=== PATIENT | male | born 1955 | race Hispanic/Latino ===

== ENCOUNTER 2016-11-03 14:06 | Observation (INO) | payer OTHER, MEDICARE ==
[~2016-11-03] VITALS: Ht 175.3 cm; Wt 113.4 kg
--- NOTE | 2016-11-03 14:19 | NUR ---
C/O LEFT SIDED CHEST PAIN RADIATING TO BACK AND HEAD X 2 DAYS, WITH SLIGHT SOB, DIZZINESS. EKG DONE ON ARRIVAL.
--- NOTE | 2016-11-03 14:49 | ED CARDIAC/CP/PALPITATIONS ---
History of Present Illness General Chief Complaint: Chest Pain Stated Complaint: CP Source: patient, family Exam Limitations: language barrier Vital Signs & Intake/Output Vital Signs & Intake/Output Vital Signs Date Time Temp Pulse Resp B/P Pulse O2 O2 Flow FiO2 Ox Delivery Rate 11/03 1545 97.8 76 18 123/80 96 Room Air Room Air 11/03 1418 97.5 80 18 127/87 99 Room Air Allergies Coded Allergies: No Known Drug Allergies (11/03/16) Reconcile Medications Aspirin (Aspirin*) 81 MG TAB.CHEW 1 TAB PO DAILY CAD (Reported) Atorvastatin Calcium 80 MG TABLET 1 TAB PO DAILY CHOLESTEROL (Reported) Glimepiride 4 MG TABLET 2 TAB PO QAM DM (Reported) Lisinopril 5 MG TABLET 1 TAB PO DAILY BP (Reported) Metformin HCl 1,000 MG TABLET 1 TAB PO DAILY DM (Reported) Pantoprazole Sodium 20 MG TABLET.DR 1 TAB PO DAILY PUD Triage Note: C/O LEFT SIDED CHEST PAIN RADIATING TO BACK AND HEAD X 2 DAYS, WITH SLIGHT SOB, DIZZINESS. EKG DONE ON ARRIVAL. Triage Nurses Notes Reviewed? yes Onset: Abrupt Duration: day(s): (1), waxing and waning Timing: multiple episodes today Quality/Severity: moderate Location: LEFT CHEST Radiation: back Activities at Onset: none Aspirin Today: no aspirin today Associated Symptoms: DIZZINESS, BACK PAIN HPI: This is a 61 year old male with history of hypertension, dyslipidemia, KS status post previous stent who presents to the ER with chief complaint of left sided chest pain radiating straight to the back on/off since yesterday. Pain is sharp and lasts 3 minutes. Associated dizziness with pain. Patient states symptoms are not similar to previous KS. He moved from [place] 2 years ago and currently follows up with Dr. Valladares cardiology. Pain is better with lying down. Denies any fever chills or productive cough. Denies any trauma. No prolonged immobilization. According to the daughter he has a history of clots in his leg. He is not on any blood thinners and does not take a daily aspirin. She states he had a vein closure procedure. It is unclear whether or not he has a history of previous DVT. Past History Travel History Traveled to [place] past 21 day No Medical History Any Pertinent Medical History? see below for history Cardiovascular: hypertension, myocardial infarction Endocrine: diabetes Surgical History Surgical History: cARDIAC STENT, VEIN SCLEROTHERAPY Psychosocial History What is your primary language Malay Tobacco Use: Quit >30 days ago ETOH Use: denies use Family History Hx Contributory? No Review of Systems Review of Systems Constitutional: Denies: chills, fever. EENTM: Reports: no symptoms. Respiratory: Denies: cough, short of breath, sputum production. Cardiovascular: Reports: chest pain. GI: Reports: no symptoms. Genitourinary: Reports: no symptoms. Musculoskeletal: Reports: back pain. Skin: Reports: no symptoms. Neurological/Psychological: Reports: see HPI (DIZZINESS). Hematologic/Endocrine: Denies: bruising, bleeding. Immunologic/Allergic: Denies: splenectomy. All Other Systems: Reviewed and Negative Physical Exam Physical Exam General Appearance: well developed/nourished, alert, awake, mild distress Head: atraumatic, normal appearance Eyes: Bilateral: normal appearance, PERRL, EOMI. Ears, Nose, Throat: normal pharynx, normal ENT inspection, hearing grossly normal Neck: normal inspection, supple, full range of motion Respiratory: normal breath sounds, chest non-tender, no respiratory distress Cardiovascular: regular rate/rhythm Peripheral Pulses: 2+ radial (R), 2+ radial (L) Gastrointestinal: normal bowel sounds, soft, non-tender Extremities: normal inspection, normal capillary refill, normal range of motion Neurologic/Psych: no motor/sensory deficits, awake, alert, oriented x 3 Skin: intact, normal color, warm/dry Core Measures ACS in differential dx? Yes ASA ordered for poss ACS? Yes-ordered Severe Sepsis Present: No Septic Shock Present: No Progress Differential Diagnosis: AMI, aortic dissection, CHF/pulm edema, musculoskeletal pain, pericarditis, pneumonia, pneumothorax, PUD/GERD Plan of Care: Orders Procedure Date/time Status Heart Healthy Diet 11/[address] in observation 11/03 1834 Active Vital Signs 11/03 1834 Active Code Status 11/03 1834 Active Telemetry/Wine Steward/Stewardess 11/03 1458 Active TROPONIN LEVEL 11/03 1457 Complete PARTIAL THROMBOPLASTIN TIME 11/03 1457 Complete PROTHROMBIN TIME 11/03 1457 Complete COMPREHENSIVE METABOLIC PANEL 11/03 1457 Complete CBC WITHOUT DIFFERENTIAL 11/03 1457 Complete EKG 11/03 1408 Active Laboratory Tests 11/03/16 1505: Anion Gap 10, Estimated GFR > 60, BUN/Creatinine Ratio 27.5 H, Glucose 141 H, Calcium 9.2, Total Bilirubin 0.8, AST 24, ALT 31, Alkaline Phosphatase 52, Troponin I 0.03, Total Protein 7.4, Albumin 4.2, Globulin 3.2, Albumin/Globulin Ratio 1.3, PT 10.6, INR 1.01, APTT 27, CBC w Diff NO MAN DIFF REQ, RBC 4.72, MCV 95.6 H, MCH 32.6 H, RDW 13.0, MPV 9.1, Gran % 60.6, Lymphocytes % 30.9, Monocytes % 6.2, Eosinophils % 1.7, Basophils % 0.6, Absolute Granulocytes 5.5, Absolute Lymphocytes 2.8, Absolute Monocytes 0.6, Absolute Eosinophils 0.2, Absolute Basophils 0.1, PUBS MCHC 34.1 11/03/2016 6:07:29 PM Patient is chest pain-free after aspirin. CT scan is negative for PE although suboptimal IV contrast bolus was given. Discussed the case with Dr. Whatley who agrees that the patient should remain overnight for observation. Patient is noncompliant with his medications for high cholesterol not on a daily aspirin. It would be advisable to keep him for 23 hours to rule out ACS and obtain an echocardiogram the possible. Discussed with patient and daughter at bedside who is translating. (VILMA KOROMA,FAISAL) Diagnostic Imaging: Viewed by Me: CT Scan. Discussed w/RAD: CT Scan. Radiology Impression: PATIENT: TAWANNA CHAUDHARY PRESENT AGE: 61 PATIENT ACCOUNT NO: [id number] : 56 LOCATION: [facility] ORDERING PHYSICIAN: FAISAL GREEN MD SERVICE DATE: 11/03/16 EXAM TYPE: CAT - CTA CHEST-PULMONARY EMBOLISM EXAMINATION: CT ANGIOGRAM OF THE CHEST WITH AND WITHOUT CONTRAST (CT PULMONARY ANGIOGRAM FOR PE) CLINICAL INFORMATION: Chest pain radiating to the back. History of deep venous thrombosis. COMPARISON: None. TECHNIQUE: Prior to contrast administration, noncontrast localization images were obtained. Subsequently, multidetector volumetric imaging was performed from the thoracic inlet to below the diaphragms following the administration of 95 mL Optiray 350 intravenous contrast. No contrast reaction reported. Sagittal, coronal, and MIP oblique sagittal reformatted images were obtained on the CT workstation, uploaded to PACS, and reviewed. Total exam dose-length product 547 mGy-cm FINDINGS: QUALITY OF STUDY/CONTRAST BOLUS: Suboptimal contrast opacification of the pulmonary arterial vasculature. PULMONARY ARTERIES: No large central pulmonary emboli. No visible intraluminal filling defects to the level of the segmental pulmonary arteries. Limited evaluation of the subsegmental pulmonary arteries secondary to pulmonary hypoinflation, respiratory motion abnormality as well as suboptimal contrast opacification of the pulmonary arterial vasculature. THORACIC AORTA: Normal caliber of the thoracic aorta, without aneurysmal dilatation or dissection. LUNG: Evaluation of the lung parenchyma demonstrates pulmonary hypoinflation and dependent bibasilar atelectasis. No focal airspace consolidation is identified to suggest infection. No suspicious pulmonary nodules or masses. Central airways are patent, without endobronchial obstructing lesions. PLEURA: No pleural effusion or pneumothorax. MEDIASTINUM: Borderline enlarged heart, without significant pericardial effusion. Normal three-vessel branching of the aortic arch. No hilar or mediastinal adenopathy. No evidence of septal bowing or right heart strain. CHEST WALL/AXILLA: No axillary or internal mammary lymphadenopathy. OSSEOUS STRUCTURES: No acute or suspicious osseous abnormality. UPPER ABDOMEN: No acute findings within the upper abdomen. Diffuse low-attenuation of the liver parenchyma, indicative of fatty infiltration of the liver. No reflux of contrast into the hepatic veins to suggest elevated right heart pressures. IMPRESSION: Suboptimal contrast opacification of the pulmonary arterial vasculature. No large central pulmonary emboli. No visible intraluminal filling defects to the level of the segmental pulmonary arteries. Limited evaluation of the subsegmental pulmonary arteries given the aforementioned exam limitations. If clinical concern for pulmonary embolism persists, consider repeat CTA of the chest following adequate hydration. Alternatively, consider correlation with a VQ scan or bilateral lower extremity Doppler ultrasounds. VTE: Indeterminate. This critical result was discussed with Dr. Green at 5:09 PM on 11/03/2016 and it was ascertained that the content and urgency of the report was understood at the time of direct communication. DICTATED BY: TAYLOR QUISPE MD DATE/TIME DICTATED:11/03/161652 CARPENTER FOREMAN:NIKKY DATE/TIME TRANSCRIBED:1652 CONFIDENTIAL, DO NOT COPY WITHOUT APPROPRIATE AUTHORIZATION. < Electronically signed in Other Vendor System> SIGNED BY: TAYLOR QUISPE MD 11/03/16 1713 Initial ED EKG: NSR Departure Departure Time of Disposition: 1759 Disposition: STILL A PATIENT Condition: Stable Clinical Impression Primary Impression: Chest pain Referrals: LETA KOROMA,COLEEN Cueva (PCP/Family) Departure Forms: Customer Survey General Discharge Information Prescriptions: Current Visit Scripts Pantoprazole Sodium 1 TAB PO DAILY #30 TAB Observation Note Spoke With: EMRE KOROMA PhD,JAMAL Fields Physician Advisor Notified: SIAV KOROMA,JAMAL Hernadnez Place Patient In: Non-ED OBS Care Area Rationale for Observation: My rational for observation is as follows [TELE MONITOR, SERIAL EKG/TROPONIN, ASPIRIN, NITRATES, ECHOCARDIOGRAM]. Critical Care Note Critical Care Note Critical Care Time: non-applicable
--- NOTE | 2016-11-03 15:09 | NUR ---
PT CHANGED INTO GOWN AND PLACED ON PARACHUTE/COMBATANT DIVER OFFICER WHICH SHOWS SR. DR ESPARZA AT BEDSIDE FOR EVALUATION. IV INITIATED, LABS DRAWN AND SENT. EKG PREVIOUSLY COMPLETED IN TRIAGE
[2016-11-03 15:15] LABS: ABSOLUTE BASOPHIL COUNT 0.1 /CUMM (0.0-0.2); ABSOLUTE EOSINOPHIL COUNT 0.2 /CUMM (0.0-0.7); ABSOLUTE GRANULOCYTE CT 5.5 /CUMM (1.4-6.5); ABSOLUTE LYMPH COUNT 2.8 /CUMM (1.2-3.4); ABSOLUTE MONOCYTE COUNT 0.6 /CUMM (0.10-0.60); BASOPHIL % 0.6 % (0.0-2.0); EOSINOPHIL % 1.7 % (0-5); GRANULOCYTE % 60.6 % (42.2-75.2); HEMATOCRIT 45.1 % (42-52); MEAN CORPUSCULAR HGB 32.6 PG (27.0-31.0); MEAN CORPUSCULAR HGB CONC 34.1 G/DL (33.0-37.0); MEAN CORPUSCULAR VOLUME 95.6 FL (80.0-94.0); MEAN PLATELET VOLUME 9.1 FL (7.4-10.4); PLATELET COUNT 215 /CUMM (130-400); RED BLOOD CELL CT 4.72 /CUMM (4.70-6.10); WHITE BLOOD CELL COUNT 9.1 /CUMM (4.8-10.8)
[2016-11-03 15:21] LABS: PT 10.6 SEC (9.4-12.5); PTT 27 SEC (25-37)
--- NOTE | 2016-11-03 15:28 | NUR ---
PT CARE ASSUMED BY THIS RN AT THIS TIME. OFFERS NO COMPLAINTS. VERBALIZES UNDERSTANDING OF PLAN FOR CAT SCAN.
[2016-11-03] MEDS ORDERED: LISINOPRIL5 M1 PO (15:55)
[2016-11-03] MEDS ORDERED: METFORMIN HCL1000 M1 PO (15:55)
[2016-11-03] MEDS ORDERED: GLIMEPIRIDE4 M1 PO (15:55)
[2016-11-03] MEDS ORDERED: ATORVASTATIN CA80 M1 PO (15:57)
--- NOTE | 2016-11-03 16:22 | NUR ---
PT CONTINUES AT CAT SCAN VIA STRETCHER.
--- NOTE | 2016-11-03 16:37 | NUR ---
PT RETURN FROM CAT SCAN VIA STRETCHER.
--- NOTE | 2016-11-03 17:13 | CT SCAN REPORT ---
EXAMINATION: CT ANGIOGRAM OF THE CHEST WITH AND WITHOUT CONTRAST (CT PULMONARY ANGIOGRAM FOR PE) CLINICAL INFORMATION: Chest pain radiating to the back. History of deep venous thrombosis. COMPARISON: None. TECHNIQUE: Prior to contrast administration, noncontrast localization images were obtained. Subsequently, multidetector volumetric imaging was performed from the thoracic inlet to below the diaphragms following the administration of 95 mL Optiray 350 intravenous contrast. No contrast reaction reported. Sagittal, coronal, and MIP oblique sagittal reformatted images were obtained on the CT workstation, uploaded to PACS, and reviewed. Total exam dose-length product 547 mGy-cm FINDINGS: QUALITY OF STUDY/CONTRAST BOLUS: Suboptimal contrast opacification of the pulmonary arterial vasculature. PULMONARY ARTERIES: No large central pulmonary emboli. No visible intraluminal filling defects to the level of the segmental pulmonary arteries. Limited evaluation of the subsegmental pulmonary arteries secondary to pulmonary hypoinflation, respiratory motion abnormality as well as suboptimal contrast opacification of the pulmonary arterial vasculature. THORACIC AORTA: Normal caliber of the thoracic aorta, without aneurysmal dilatation or dissection. LUNG: Evaluation of the lung parenchyma demonstrates pulmonary hypoinflation and dependent bibasilar atelectasis. No focal airspace consolidation is identified to suggest infection. No suspicious pulmonary nodules or masses. Central airways are patent, without endobronchial obstructing lesions. PLEURA: No pleural effusion or pneumothorax. MEDIASTINUM: Borderline enlarged heart, without significant pericardial effusion. Normal three-vessel branching of the aortic arch. No hilar or mediastinal adenopathy. No evidence of septal bowing or right heart strain. CHEST WALL/AXILLA: No axillary or internal mammary lymphadenopathy. OSSEOUS STRUCTURES: No acute or suspicious osseous abnormality. UPPER ABDOMEN: No acute findings within the upper abdomen. Diffuse low-attenuation of the liver parenchyma, indicative of fatty infiltration of the liver. No reflux of contrast into the hepatic veins to suggest elevated right heart pressures. IMPRESSION: Suboptimal contrast opacification of the pulmonary arterial vasculature. No large central pulmonary emboli. No visible intraluminal filling defects to the level of the segmental pulmonary arteries. Limited evaluation of the subsegmental pulmonary arteries given the aforementioned exam limitations. If clinical concern for pulmonary embolism persists, consider repeat CTA of the chest following adequate hydration. Alternatively, consider correlation with a VQ scan or bilateral lower extremity Doppler ultrasounds. VTE: Indeterminate. This critical result was discussed with Dr. Green at 5:09 PM on 11/03/2016 and it was ascertained that the content and urgency of the report was understood at the time of direct communication.
--- NOTE | 2016-11-03 18:11 | NUR ---
DINNER TRAY ORDERED.
--- NOTE | 2016-11-03 18:39 | NUR ---
DINNER TRAY PROVIDED TO PT. CASE MANAGEMENT TO BEDSIDE TO DISCUSS HOSPITAL STAY.
--- NOTE | 2016-11-03 19:23 | NUR ---
PT TO ROOM 189 BED 2
--- NOTE | 2016-11-03 20:05 | History & Physical ---
DEVIN WHYTE 11/03/16 2004: General Information and HPI MD Statement: I have seen and personally examined TAWANNA CHAUDHARY and documented this H&P. The patient is a 61 year old M who presented with a patient stated chief complaint of [Chest pain, SOB ]. Source of Information: patient, family Exam Limitations: no limitations History of Present Illness: is a 61 yo man with PMHx. of HTN, HLD, DM, DVT about 5- 6 years, HI 4 to 5 years ago he has a cardiac cath. but he didn't remember if they put a stent, who presents to the ER with c/o of left sided chest pain, and SOB started yesterday. Initially pain was mild, but when he woke up today he feels sharp sever pain 6/10, radiating to the back and head, improved with laying down and no exacerbating factors, associated with numbness of the tongue and SOB, he was breathing fast. He felt Dizzy during the pain but no LOC. He follows up with Dr. Valladares cardiology. Denies any fever, chills, cough, sore throat. No change bowel habits. He reports burning urination, with no blood, no frequency, no flank pain. He denies any trauma. Of note patient is in disability because of numbness of BL LE, it gets weak easily on ambulation. He had Hx chronic diabetic ulcer, which healed with dark skin pigmentation on B/ L LE. Allergies/Medications Allergies: Coded Allergies: No Known Drug Allergies (11/03/16) Past History Travel History Traveled to [place] past 21 day No Medical History EENT: cataracts Cardiovascular: hypertension, myocardial infarction Endocrine: diabetes Blood Disorders: DVT Surgical History Surgical History: cARDIAC STENT, VEIN SCLEROTHERAPY Past Family/Social History Family History Relations & Conditions if any MOTHER FH: heart attack FH: hypertension FHx: diabetes mellitus FATHER FH: stroke Relation not specified for: *No pertinent family history Psychosocial History Primary Language: Luxembourgish Smoking Status: Never Smoked ETOH Use: denies use Illicit Drug Use: denies illicit drug use Employment History 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 EENTM: Reports: no symptoms. Cardiovascular: Reports: chest pain. Respiratory: Reports: short of breath. Genitourinary: Reports: see HPI. Musculoskeletal: Reports: back pain. Neurological/Psychological: Reports: see HPI. Hematologic/Endocrine: Reports: see HPI. Exam & Diagnostic Data Last 24 Hrs of Vital Signs/I&O Vital Signs Date Time Temp Pulse Resp B/P Pulse O2 O2 Flow FiO2 Ox Delivery Rate 11/03 1913 97.2 64 18 149/90 97 11/03 1545 97.8 76 18 123/80 96 Room Air Room Air 11/03 1418 97.5 80 18 127/87 99 Room Air Intake & Output 11/03 1600 11/03 0800 11/03 0000 Intake Total Output Total Balance Patient 250 lb Weight Physical Exam General Appearance Alert, Oriented X3, Cooperative, No Acute Distress Skin No Rashes, No Breakdown, No Significant Lesion, dark discoloration on B/L LE, at the site of healing of chronic ulcer HEENT Atraumatic, PERRLA, EOMI, Mucous Membr. moist/pink Neck Supple, No JVD, No thryomegaly, +2 Carotid Pulse wo Bruit Lymphatic Axillary nl, Cervical nl Cardiovascular Regular Rate, Normal S1, Normal S2, No Murmurs Lungs Clear to Auscultation, Normal Air Movement Abdomen Normal Bowel Sounds, Soft, No Tenderness Neurological Normal Speech, Strength at 5/5 X4 Ext, Normal Tone, Sensation Intact, Cranial Nerves 3-12 NL, Reflexes 2+ Extremities No Edema, Normal Pulses Vascular Normal Pulses, Pulses Symmetrical Last 24 Hrs of Labs/Shakeel: Laboratory Tests 11/03/16 1505: Anion Gap 10, Estimated GFR > 60, BUN/Creatinine Ratio 27.5 H, Glucose 141 H, Calcium 9.2, Total Bilirubin 0.8, AST 24, ALT 31, Alkaline Phosphatase 52, Troponin I 0.03, Total Protein 7.4, Albumin 4.2, Globulin 3.2, Albumin/Globulin Ratio 1.3, PT 10.6, INR 1.01, APTT 27, CBC w Diff NO MAN DIFF REQ, RBC 4.72, MCV 95.6 H, MCH 32.6 H, RDW 13.0, MPV 9.1, Gran % 60.6, Lymphocytes % 30.9, Monocytes % 6.2, Eosinophils % 1.7, Basophils % 0.6, Absolute Granulocytes 5.5, Absolute Lymphocytes 2.8, Absolute Monocytes 0.6, Absolute Eosinophils 0.2, Absolute Basophils 0.1, PUBS MCHC 34.1 Assessment/Plan Assessment: 61 yo man with PMHx significant for HTN, HLD, HI, ?DVT presented with chest pain and SOB. Labs: WNL, except elevated bun/creatinine ratio:27.5 1st troponin is negative CTA:Suboptimal contrast opacification of the pulmonary arterial vasculature. No large central pulmonary emboli. No visible intraluminal filling defects to the level of the segmental pulmonary arteries. Limited evaluation of the subsegmental pulmonary arteries given the aforementioned exam limitations. If clinical concern for pulmonary embolism persists, consider repeat CTA of the chest following adequate hydration. Alternatively, consider correlation with a VQ scan or bilateral lower extremity Doppler ultrasounds. Plan: -Will admitt to telemetry floor -Will start IV heparin -D-dimer -serial EKG and Troponin to r/o ACS -BL LE doppler to R/O dvt -Cardiology consult with -Echocardiogram to assess left wall motion, and to r/o right heart strain -Will continue home medications -ABG -Will hold oral hypoglycemic med -Will start insulin sliding scale -Acchucheck -pain management pathway -Diabetic diet Full code As Ranked By This Provider Problem List: 1. Chest pain Core Measures/Miscellaneous Acute Coronary Syndrome ACS Diagnosis: No Cerebrovascular Accident CVA/TIA Diagnosis: No Congestive Heart Failure CHF Diagnosis: No Venous Thromboembolism VTE Risk Factors: Acute medical illness, Age > 40 VTE Prophylaxis Ordered Inpt: Pharm- Heparin No Mech VTE prophylaxis d/t: No contraindications No VTE Pharm Prophylaxis d/t: No contraindications VTE Diagnosis: Yes VTE Type: Pulmonary Embolism VTE Confirmed by (Test): CT CHEST ANGIOGRAM Severe Sepsis Severe Sepsis Present: No Septic Shock Septic Shock Present: No Miscellaneous Documentation Attending Case Discussed With: EMRE KOROMA PhD,JAMAL Fields Primary Care Physician: COLEEN GILLETTE MD Patient sees these Specialists Banking And Finance Instructor Level of Patient Care: Telemetry NICKOLAS SOLIZ MD 11/04/16 1158: General Information and HPI Allergies/Medications Home Med list Aspirin (Aspirin*) 81 MG TAB.CHEW 1 TAB PO DAILY CAD (Reported) Atorvastatin Calcium 80 MG TABLET 1 TAB PO DAILY CHOLESTEROL (Reported) Glimepiride 4 MG TABLET 2 TAB PO QAM DM (Reported) Lisinopril 5 MG TABLET 1 TAB PO DAILY BP (Reported) Metformin HCl 1,000 MG TABLET 1 TAB PO DAILY DM (Reported) Pantoprazole Sodium 20 MG TABLET. 1 TAB PO DAILY PUD Attending MD Review Statement Attending Statement Attending MD Statement: examined this patient, discuss w/resident/PA/FOUNDER AND PRESIDENT, agreed w/resident/PA/FOUNDER AND PRESIDENT, discussed with family, reviewed EMR data (avail), discussed with nursing, reviewed images, amended to note Attending Assessment/Plan: Agree with housestaff note above. The patient presented with chest pain and shortness of breath, which have resolved. He is now pain-free. Review of systems: No fever. No chills. No rash. No tremor. All other systems were reviewed, and were noted to be negative. Gen: The patient is in no acute distress HEENT: Normal nose, ears, and oropharynx. Pupils equal bilaterally. Conjunctiva normal. Neck: Supple with no JVD, no masses, and no thyromegaly Lungs: Clear to auscultation with normal respiratory effort Heart: RRR, S1, S2, no murmurs. No peripheral edema, 2+ pulses in the lower extremities bilaterally Abdomen: Soft, nontender, no masses. No hepatomegaly. No splenomegaly Extremities: No clubbing or cyanosis. Normal muscle strength in the upper and lower extremities Skin: Normal skin turgor with no skin ulcers or lesions noted. Neuro: Cranial nerves intact. Sensation intact Psych: Alert and oriented 3 with appropriate affect EKG tracing is independently reviewed, and reveals normal sinus rhythm at 75 CTA chest: Suboptimal contrast opacification of the pulmonary arterial vasculature. No large central pulmonary emboli. No visible intraluminal filling defects to the level of the segmental pulmonary arteries. Limited evaluation of the subsegmental pulmonary arteries given the aforementioned exam limitations. If clinical concern for pulmonary embolism persists, consider repeat CTA of the chest following adequate hydration. Alternatively, consider correlation with a VQ scan or bilateral lower extremity Doppler ultrasounds. VTE: Indeterminate. Lower Extremity Doppler: There is no sonographic evidence of deep venous thrombosis involving the bilateral lower extremities. Assessment: 1. Hypertension 2. Diabetes mellitus 3. History of cardiac catheterization showing myocardial bridging 4. Chest pain, likely negative troponin [address] angiogram inconclusive for PE, however d-dimer is negative and lower extremity Dopplers negative for DVT. Plan: * Check third troponin now. * If the troponin is negative, then discharge home today. * Follow up with Dr. Valladares in one week.
--- NOTE | 2016-11-03 21:19 | NUR ---
PER LAB SST AND BLUE TOP HEMOLYZED.
--- NOTE | 2016-11-03 21:40 | NUR ---
PT TO US VIA STRETCHER.
--- NOTE | 2016-11-03 22:12 | ULTRASOUND REPORT ---
EXAMINATION: US TRIPLEX LOWER EXTREMITY, BILATERAL CLINICAL INFORMATION: Shortness of breath and chest pain COMPARISON: None TECHNIQUE: Color-flow triplex imaging with spectral analysis and compression Doppler were performed on the bilateral lower extremities. FINDINGS: Respiratory variation, normal compression and augmented flow are noted throughout the bilateral lower extremities. The visualized common femoral vein, superficial femoral vein, profunda femoral vein, popliteal vein and midcalf peroneal and posterior tibial venous segments show no evidence of deep venous thrombosis. There is no Ball's cyst. IMPRESSION: There is no sonographic evidence of deep venous thrombosis involving the bilateral lower extremities.
[2016-11-03 22:46] VITALS: BP 124/80
[2016-11-04 04:01] LABS: PTT 66 SEC (25-37)
--- NOTE | 2016-11-04 06:54 | PN- Housestaff ---
Subjective Follow-up For: -Chest pain -?Acute on chronic PE Complaints: Headache Subjective: Patient seen and examined at bedside. He is complained from sever headache a wake him up from sleep. He still feels left chest pain, initially improved with nitroglycerine patch but now acting up again. He denies nausea, vomiting, SOB, and there is no change in bowel habits. Vitals remains stable overnight. Review of Systems Constitutional: Denies: no symptoms. EENTM: Denies: no symptoms. Cardiovascular: Denies: no symptoms. Respiratory: Reports: no symptoms. Gastrointestinal: Reports: no symptoms. Genitourinary: Reports: no symptoms. Objective Last 24 Hrs of Vital Signs/I&O Vital Signs Date Time Temp Pulse Resp B/P Pulse O2 O2 Flow FiO2 Ox Delivery Rate 11/04 0921 6 110/60 11/04 0753 98.4 60 20 110/60 96 11/03 2246 98.9 60 20 124/80 97 Room Air 11/03 2211 101.5 120 20 156/92 96 11/03 2200 66 145/88 11/03 1913 97.2 64 18 149/90 97 11/03 1545 97.8 76 18 123/80 96 Room Air Room Air 11/03 1418 97.5 80 18 127/87 99 Room Air Intake & Output 11/04 1600 11/04 0800 11/04 0000 Intake Total 328 Output Total Balance 328 Intake, IV 208 Intake, Oral 120 Patient 250 lb Weight Physical Exam General Appearance: Alert, Oriented X3, Cooperative, No Acute Distress Skin: No Rashes, No Breakdown, No Significant Lesion HEENT: PERRLA, EOMI, Mucous Membr. moist/pink Cardiovascular: Normal S1, Normal S2, No Murmurs Lungs: Clear to Auscultation, Normal Air Movement Abdomen: Soft, No Tenderness Extremities: No Edema, Normal Pulses Vascular: Normal Pulses, Pulses Symmetrical Current Medications: Current Medications Sig/Sarah Start time Last Medication Dose Route Stop Time Status Admin Acetaminophen 650 MG Q6P PRN 11/04 0700 AC 11/04 PO 0736 Aspirin 0 .STK-MED ONE 11/03 1513 DC PO Aspirin 325 MG ONCE ONE 11/03 1500 DC 11/03 PO 11/03 1501 1512 Atorvastatin Calcium 80 MG DAILY@1700 11/04 1700 AC PO Heparin Sodium/ 25,000 UNIT Q24H 11/03 2014 AC 11/03 Dextrose IV 2106 Dextrose/Water 500 ML Ibuprofen 600 MG Q6P PRN 11/04 0700 AC PO Insulin Human Regular 0 TIDAC/HS 11/03 2099 AC 11/04 SC 0922 Lisinopril 5 MG DAILY 11/04 1000 AC 11/04 PO 0921 Nitroglycerin 0.2 MG 2200 11/03 2200 AC 11/04 TOP 0009 Oxycodone/ 2 TAB Q6P PRN 11/04 07 AC Acetaminophen PO Last 24 Hrs of Lab/Shakeel Results Last 24 Hrs of Labs/Mics: Laboratory Tests 11/04/16 0800: pH 7.42, pCO2 35, pO2 81, HCO3 22, ABG O2 Sat (Measured) 96.0, P-50 (Temp Corrected) YES, Carboxyhemoglobin 0.8 L, O2 Concentration % RA, Temperature 98.9, O2 Delivery Method RA, Phlebotomy Draw Site RIGHT RADIAL 11/04/16 0315: APTT 66 H 11/03/16 2130: Troponin I < 0.01, D-Dimer < 200 11/03/16 1505: Anion Gap 10, Estimated GFR > 60, BUN/Creatinine Ratio 27.5 H, Glucose 141 H, Calcium 9.2, Total Bilirubin 0.8, AST 24, ALT 31, Alkaline Phosphatase 52, Troponin I 0.03, Total Protein 7.4, Albumin 4.2, Globulin 3.2, Albumin/Globulin Ratio 1.3, PT 10.6, INR 1.01, APTT 27, CBC w Diff NO MAN DIFF REQ, RBC 4.72, MCV 95.6 H, MCH 32.6 H, RDW 13.0, MPV 9.1, Gran % 60.6, Lymphocytes % 30.9, Monocytes % 6.2, Eosinophils % 1.7, Basophils % 0.6, Absolute Granulocytes 5.5, Absolute Lymphocytes 2.8, Absolute Monocytes 0.6, Absolute Eosinophils 0.2, Absolute Basophils 0.1, PUBS MCHC 34.1 Assessment/Plan Assessment: 61 yo man with PMHx significant for HTN, HLD, HI, ?DVT presented with chest pain and SOB. ACS ruled out with 2 troponin and EKG CTA unconclusive for PE, however patient presented with chest pain and tachypnea , who had Hx. of DVT and HI. Yesterday case discussed with attending who recommended to start IV heparin for presumed PE. Will continue monitor the patient at telemetry Echocardiogram is pendign will f/u Monitor BP He had headache managed with Tylenol Full code Problem List: 1. Chest pain Pain Ratin Pain Location: - Pain Goal: Remain pain free (-) Pain Plan: - Tomorrow's Labs & Rationales: - DVT/Prophylaxis: pharmacological
[2016-11-04 07:53] VITALS: BP 110/60
[2016-11-04 09:21] VITALS: BP 110/60
--- NOTE | 2016-11-04 12:27 | Patient Discharge Instructions ---
Discharge Instructions General Discharge Information You were seen/treated for: chest pain under evaluation Special Instructions: please follow up with your PCP with in a week of discharge. Pleased follow up with your field marketing associate with in a week of discharge. Diet Recommended Diet: Heart Healthy Activity Full Activity/No Limits: No (As tolerated) Acute Coronary Syndrome Inclusion Criteria At DC or during hospital stay patient has or had the following: ACS DIAGNOSIS No Discharge Core Measures Meds if any: Prescribed or Continued at Discharge Meds if any: NOT Prescribed or Continued at Discharge Congestive Heart Failure Inclusion Criteria At DC or during hospital stay patient has or had the following: CHF DIAGNOSIS No Discharge Core Measures Meds if any: Prescribed or Continued at Discharge Meds if any: NOT Prescribed or Continued at Discharge Cerebrovascular accident Inclusion Criteria At DC or during hospital stay patient has or had the following: CVA/TIA Diagnosis No Discharge Core Measures Meds if any: Prescribed or Continued at Discharge Meds if any: NOT Prescribed or Continued at Discharge Venous thromboembolism Inclusion Criteria VTE Diagnosis No VTE Type NONE VTE Confirmed by (Test) NONE Discharge Core Measures - Per Current guidelines, there needs to be overlap - treatment for the first 5 days of Warfarin therapy. - If discharged on Warfarin prior to 5 days of - overlap therapy, the patient will need to be - assessed for post discharge needs including - *Post discharge parental anticoagulation - *Warfarin and/or parental anticoagulation education - *Follow up date to check INR post discharge At least 5 days overlap therapy as Inpatient No Meds if any: Prescribed or Continued at Discharge Warfarin No Note: Overlap Therapy is Warfarin and Anticoagulant Meds if any: NOT Prescribed or Continued at Discharge
[2016-11-04] MEDS ORDERED: OMEPRAZOLE20 M2 PO (14:08)
[2016-11-04] MEDS ORDERED: ASPIRIN81 M4 PO (14:22)
[2016-11-04] MEDS ORDERED: PANTOPRAZOLE SO20 M1 PO (14:37)
== END 2016-11-04 15:03 ==
LOC: ENRESERVTM → ENRESERVDT → ERH 14:06 → ERHI 18:34 → ENPENDDIS 18:34 → 1NO 18:34 → CMPBEDREQ 11-04 10:05 → 1NO 11-04 15:03
PROVIDERS: Emergency Medicine; ADMIT Internal Medicine Interventional Cardiology
DX: R52 Pain, unspecified (principal); I10 Essential (primary) hypertension; E78.5 Hyperlipidemia, unspecified; I21.3 ST elevation (STEMI) myocardial infarction of unspecified site; Z86.718 Personal history of other venous thrombosis and embolism; E11.9 Type 2 diabetes mellitus without complications
CPT/HCPCS: 2000; 6020; 36415; 93005; 93010; 93970; 96374; G0378; J1644; J3490; J7060